=== PATIENT | male | born 1965 | race Caucasian/White ===

== ENCOUNTER 2018-02-03 19:52 | Emergency (ER) | payer SELFPAY ==
[~2018-02-03] VITALS: Ht 167.6 cm; Wt 86.0 kg
[2018-02-03 20:12] VITALS: BP 189/77; PULSE 91; RESP 18; TEMP 97.4; O2SAT 98
--- NOTE | 2018-02-03 21:39 | PD ---
HPI Chief Complaint: Chest Pain Time Seen by Provider: 21:25 Travel History International Travel<30 days: No Contact w/Intl Traveler<30days: No Traveled to known affect area: No History of Present Illness HPI 52-year-old male here for evaluation of chest pain as well as possible STD. Patient tells me that he has been having substernal chest pain for about 3-6 months. He reports that it feels as though there is someone sitting on his chest. He denies any known history of cardiac disease. No family history of cardiac disease. He does smoke cigarettes. He denies alcohol or illicit drug use. He also tells me that he believes he may have an STD. He states that his urine appears cloudy and his testicles feel swollen. [facility] Past Medical History Immunizations Current: Yes Tetanus Vaccination: Unknown Influenza Vaccination: No Social History Alcohol Use: No Tobacco Use: No Substance Use: No Allergies-Medications (Allergen,Severity, Reaction): Coded Allergies: No Known Allergies (Unverified , 02/03/18) Reported Meds & Prescriptions Reported Meds & Active Scripts Active No Active Prescriptions or Reported Medications Review of Systems Except as stated in HPI: all other systems reviewed are Neg Physical Exam Narrative GENERAL: Well-developed, well-nourished, comfortable, no apparent distress. SKIN: Focused skin assessment warm/dry. No rash. HEAD: Atraumatic. Normocephalic. EYES: Pupils equal and round. No scleral icterus. No injection or drainage. ENT: Mucous membranes pink and moist. NECK: Trachea midline. No JVD. CARDIOVASCULAR: Regular rate and rhythm. RESPIRATORY: No accessory muscle use. Clear to auscultation. Breath sounds equal bilaterally. GASTROINTESTINAL: Abdomen soft, non-tender, nondistended. : Within normal limits. No rashes. No abnormal swelling. No hernias. MUSCULOSKELETAL: No obvious deformities. No clubbing. No cyanosis. No edema. NEUROLOGICAL: Awake and alert. No obvious cranial nerve deficits. Motor grossly within normal limits. Normal speech. PSYCHIATRIC: Appropriate mood and affect; insight and judgment normal. Data Data Last Documented VS Vital Signs Date Time Temp Pulse Resp B/P (MAP) Pulse Ox O2 Delivery O2 Flow Rate FiO2 02/03/18 21:42 86 18 134/81 (98) 97 Room Air 02/03/18 20:12 97.4 Orders Orders Electrocardiogram (02/03/18 16:59) Ckmb (Isoenzyme) Profile (02/03/18 21:32) Complete Blood Count With Diff (02/03/18 21:32) Comprehensive Metabolic Panel (02/03/18 21:32) Magnesium (Mg) (02/03/18 21:32) Prothrombin Time / Inr (Pt) (02/03/18 21:32) Act Partial Throm Time (Ptt) (02/03/18 21:32) Troponin I (02/03/18 21:32) Chest, Single Ap (02/03/18 21:32) Ecg Monitoring (02/03/18 21:32) Iv Access Insert/Monitor (02/03/18 21:32) Oximetry (02/03/18 21:32) Aspirin Chew (Aspirin Chew) (02/03/18 21:45) Sodium Chloride 0.9% Flush (Ns Flush) (02/03/18 21:45) Alcohol (Ethanol) (02/03/18 21:32) Drug Screen, Random Urine (02/03/18 21:32) Urinalysis - C+S If Indicated (02/03/18 21:32) Gc And Chlamydia Pcr (02/03/18 21:32) CKMB (02/03/18 21:30) CKMB% (02/03/18 21:30) Labs Laboratory Tests Test 02/03/18 21:30 02/03/18 22:15 White Blood Count 8.2 TH/MM3 Red Blood Count 4.95 MIL/MM3 Hemoglobin 14.8 GM/DL Hematocrit 42.9 % Mean Corpuscular Volume 86.6 FL Mean Corpuscular Hemoglobin 30.0 PG Mean Corpuscular Hemoglobin Concent 34.6 % Red Cell Distribution Width 12.9 % Platelet Count 206 TH/MM3 Mean Platelet Volume 8.2 FL Neutrophils (%) (Auto) 59.4 % Lymphocytes (%) (Auto) 27.7 % Monocytes (%) (Auto) 10.1 % Eosinophils (%) (Auto) 1.9 % Basophils (%) (Auto) 0.9 % Neutrophils # (Auto) 4.9 TH/MM3 Lymphocytes # (Auto) 2.3 TH/MM3 Monocytes # (Auto) 0.8 TH/MM3 Eosinophils # (Auto) 0.2 TH/MM3 Basophils # (Auto) 0.1 TH/MM3 CBC Comment DIFF FINAL Differential Comment Prothrombin Time 10.3 SEC Prothromb Time International Ratio 1.0 RATIO Activated Partial Thromboplast Time 23.8 SEC Blood Urea Nitrogen 16 MG/DL Creatinine 0.98 MG/DL Random Glucose 98 MG/DL Total Protein 7.1 GM/DL Albumin 3.8 GM/DL Calcium Level 9.0 MG/DL Magnesium Level 2.1 MG/DL Alkaline Phosphatase 83 U/L Aspartate Amino Transf (AST/SGOT) 29 U/L Alanine Aminotransferase (ALT/SGPT) 45 U/L Total Bilirubin 0.6 MG/DL Sodium Level 140 MEQ/L Potassium Level 3.8 MEQ/L Chloride Level 103 MEQ/L Carbon Dioxide Level 27.5 MEQ/L Anion Gap 10 MEQ/L Estimat Glomerular Filtration Rate 81 ML/MIN Total Creatine Kinase 324 U/L Creatine Kinase MB 5.2 NG/ML Creatine Kinase MB % 1.6 % Troponin I LESS THAN 0.02 NG/ML Ethyl Alcohol Level LESS THAN 3 MG/DL Urine Color YELLOW Urine Turbidity CLEAR Urine pH 6.0 Urine Specific [place] 1.032 Urine Protein TRACE mg/dL Urine Glucose (UA) NEG mg/dL Urine Ketones NEG mg/dL Urine Occult Blood NEG Urine Nitrite NEG Urine Bilirubin NEG Urine Urobilinogen 2.0 MG/DL Urine Leukocyte Esterase NEG Urine RBC 1 /hpf Urine WBC LESS THAN 1 /hpf Urine Squamous Epithelial Cells <1 /hpf Microscopic Urinalysis Comment CULT NOT INDICATED Urine Opiates Screen NEG Urine Barbiturates Screen NEG Urine Amphetamines Screen POS Urine Benzodiazepines Screen NEG Urine Cocaine Screen NEG Urine Cannabinoids Screen POS MDM Medical Decision Making Medical Screen Exam Complete: Yes Emergency Medical Condition: Yes Interpretation(s) EKG: Sinus, rate 86, normal axis, normal intervals, no acute ischemic abnormality. Differential Diagnosis Atypical chest pain, ACS, pneumothorax, pericarditis, PE, pneumonia, STD Narrative Course Vital signs reviewed. CBC is unremarkable. CMP is unremarkable. Cardiac enzymes are negative. Chest x-ray shows no acute disease. UA is completely within normal limits. Urine drug screen is positive for amphetamines and cannabinoids. The patient initially told me that he does not use any illicit drugs. When I told him of his UA findings he tells me that he has been taking Adderall that is not prescribed to him. Patient is requesting to be treated for STDs. He believes he may have trichomonas. I will give him IM Rocephin, 1 g of azithromycin, and 2 g of Flagyl. I do not believe the patient's chest pain is cardiopulmonary in nature. He reports having this pain for the last 3-6 months. He is very vague with his symptoms. EKG is nonischemic. His cardiac enzymes are negative. I told him he should stop using amphetamines if his chest hurts. I believe he is stable for discharge home with outpatient follow-up. I will given the information to the [facility] where he can follow-up this week. He was advised on when to return to the emergency department. He verbalizes understanding and agreement with plan. Diagnosis Primary Impression: Atypical chest pain Additional Impression: Polysubstance abuse Referrals: [facility] 3 days Additional Instructions: Follow-up with a primary care physician this week. Return to the emergency department for worsening symptoms or any other concerns. Scripts No Active Prescriptions or Reported Meds Disposition: 01 DISCHARGE HOME Condition: Stable Ronny Wilson MD Feb 03, 2018 21:39
[2018-02-03 21:42] VITALS: BP 134/81; PULSE 86; RESP 18; O2SAT 97
[2018-02-03] MEDS ORDERED: ASPIRIN 81 MG CHEW TAB PO ONE (21:45)
[2018-02-03] MEDS ORDERED: SODIUM CHLORIDE 0.9% FLUSH 10 ML FLUSH IVF PRN (21:45)
--- NOTE | 2018-02-03 21:58 | RADRPT ---
EXAM DATE/TIME: 02/03/2018 21:42 [place] COMPARISON: No previous studies available for comparison. INDICATIONS : Chest pain. MEDICAL HISTORY : None. SURGICAL HISTORY : None. ENCOUNTER: Initial ACUITY: 4 - 6 months PAIN SCORE: 8/10 LOCATION: middle chest FINDINGS: A single view of the chest demonstrates the lungs to be symmetrically aerated without evidence of mas s, infiltrate or effusion. The cardiomediastinal contours are unremarkable. Osseous structures are intact. CONCLUSION: 1. No acute cardiopulmonary findings. Eduardo Forbes MD on February 03, 2018 at 21:55 Board Certified Radiologist. This report was verified electronically.
[2018-02-03 22:03] LABS: AUTOMATED NEUTROPHIL # 4.9 TH/MM3 (1.8-7.7); BASOPHIL # 0.1 TH/MM3 (0-0.2); BASOPHIL % 0.9 % (0.0-2.0); EOSINOPHIL # 0.2 TH/MM3 (0-0.4); EOSINOPHIL % 1.9 % (0.0-4.0); HEMATOCRIT 42.9 % (39.0-51.0); HEMOGLOBIN 14.8 GM/DL (13.0-17.0); LYMPH % 27.7 % (9.0-44.0); LYMPHOCYTE # 2.3 TH/MM3 (1.0-4.8); MEAN CELL VOLUME 86.6 FL (80.0-100.0); MEAN CORPUSCULAR HGB CONC 34.6 % (32.0-36.0); MEAN PLATELET VOLUME 8.2 FL (7.0-11.0); MONO % 10.1 % (0.0-8.0); MONOCYTE # 0.8 TH/MM3 (0-0.9); NEUT % 59.4 % (16.0-70.0); PLATELET COUNT 206 TH/MM3 (150-450); RED BLOOD COUNT 4.95 MIL/MM3 (4.50-5.90); RED CELL DISTRIBUTION WIDTH 12.9 % (11.6-17.2); WHITE BLOOD COUNT 8.2 TH/MM3 (4.0-11.0)
[2018-02-03 22:14] LABS: PROTHROMBIN TIME - PATIENT 10.3 SEC (9.8-11.6)
[2018-02-03 22:27] LABS: ALBUMIN 3.8 GM/DL (3.4-5.0); AST (GOT) 29 U/L (15-37); BICARBONATE 27.5 MEQ/L (21.0-32.0); BLOOD UREA NITROGEN 16 MG/DL (7-18); CHLORIDE 103 MEQ/L (98-107); CREATININE 0.98 MG/DL (0.60-1.30); GLOMERULAR FILTRATION RATE 81 ML/MIN (>89); GLUCOSE,RANDOM 98 MG/DL (74-106); MAGNESIUM 2.1 MG/DL (1.5-2.5); SODIUM (NA) 140 MEQ/L (136-145)
[2018-02-03 22:28] LABS: ALT (GPT) 45 U/L (12-78)
[2018-02-03 22:32] LABS: ALKALINE PHOSPHATASE 83 U/L (45-117); TOTAL BILIRUBIN ADULT 0.6 MG/DL (0.2-1.0); TOTAL PROTEIN 7.1 GM/DL (6.4-8.2); TROPONIN I LESS THAN 0.02 NG/ML (0.02-0.05)
[2018-02-03 22:51] LABS: BILIRUBIN, URINE NEG (NEG); BLOOD, URINE NEG (NEG); GLUCOSE,URINE NEG (NEG); KETONE, URINE NEG (NEG); NITRITE,URINE NEG (NEG); SQUAMOUS EPITHELIAL CELL URINE <1 /hpf (0-5); URINE COLOR YELLOW (YELLW/STRAW); URINE LEUKOCYTE ESTERASE NEG (NEG)
[2018-02-03] MEDS ORDERED: LIDOCAINE HCL 1% 20 ML VIAL ONE (23:09)
[2018-02-03] MEDS ORDERED: AZITHROMYCIN PWD FOR SUSP 1 GM PACKET PO ONE (23:15)
[2018-02-03] MEDS ORDERED: cefTRIAXone 250 MG VIAL IM ONE (23:15)
[2018-02-03] MEDS ORDERED: LIDOCAINE HCL 1% 50 ML VIAL XX ONE (23:15)
[2018-02-03] MEDS ORDERED: metroNIDAZOLE 500 MG TAB PO ONE (23:15)
[2018-02-04 00:11] VITALS: BP 144/83
--- NOTE | 2018-02-04 13:22 | EKG ---
Date Performed: 02/03/2018 Time Performed: 20:19:05 PTAGE: 52 years EKG: Sinus rhythm POSSIBLE LEFT ATRIAL ENLARGEMENT POSSIBLE RIGHT VENTRICULAR CONDUCTION DELAY BORDERLINE ECG NO PREVIOUS TRACING DOCTOR: Mariano Aragon Interpretating Date/Time 02/04/2018 13:21:25
== END 2018-02-04 00:35 | disposition home or self-care (01) ==
LOC: NEPD 19:52
DX: R07.89 Other chest pain (principal); F19.10 Other psychoactive substance abuse, uncomplicated; R94.31 Abnormal electrocardiogram [ECG] [EKG]
CPT/HCPCS: 71045; 80053; 80307; 81001; 82550; 82552; 83735; 84484; 85025; 85610; 85730; 87491; 87591; 93005; 96372; 99285; J0696